=== PATIENT | female | born 1935 | race Two or more races ===

== ENCOUNTER 2017-10-16 12:20 | Outpatient (CLI) | payer OTHER ==
[~2017-10-16 12:20] MED LIST: AMBIEN10 MG PO; CELEBREX50 MG PO; CIPROFLOXACIN750 MG PO; CLONAZEPAM1 MG PO; COZAAR25 MG PO; Colace 100MG PO; GABAPENTIN600 MG PO; GLUMETZA1000 MG PO; LANTUS SOLOSTAR3 ML SQ; METHYLPRED4 MG/DOSE- PO; NEURONTIN800 MG PO; PERCOCET 5/3251 TAB PO
== END 2017-10-16 12:26 | disposition home or self-care (01) ==
LOC: RAD 12:20
DX: M50.00 Cervical disc disorder with myelopathy, unspecified cervical region (principal); Z98.1 Arthrodesis status

== ENCOUNTER 2019-03-11 11:09 | Outpatient (CLI) | payer OTHER | END 2019-03-11 12:00 | disposition home or self-care (01) | LOC: TOM 11:09 | DX: R19.5 Other fecal abnormalities (principal); Z56.89 Other problems related to employment; K63.5 Polyp of colon ==